=== PATIENT | male | born 1995 | race Caucasian/White ===

== ENCOUNTER 2021-07-17 17:35 | Emergency (ER) | payer OTHER ==
[~2021-07-17] VITALS: Ht 170.2 cm; Wt 90.7 kg
--- NOTE | 2021-07-17 17:50 | NUR ---
BIBS THIS 25YO MALE PATIENT, PER WHEELCHAIR. WITH CC OF "Abdominal Pain/nause/vomiting x3H- I think we have food poisoning" PATIENT VOMITED 5X CLAIMED. VITALS CHECKED. PLACED COMFORTABLY IN BED
--- NOTE | 2021-07-17 17:55 | NUR ---
URINE SPECIMEN SENT TO LAB
[2021-07-17] MEDS ORDERED: DICYCLOMINE HCL INJ 20 MG/2 ML AMPUL IM ONE ×3 (18:00→18:17)
[2021-07-17] MEDS ORDERED: ONDANSETRON HCL/PF 4 MG/2 ML VIAL IV ONE (18:00)
[2021-07-17] MEDS ORDERED: IV NS 0.9% 1,000 ML IV ONE (18:00)
[2021-07-17] MEDS ORDERED: ONDANSETRON HCL/PF 4 MG/2 ML VIAL ONE ×2 (18:16→18:17)
--- NOTE | 2021-07-17 18:18 | NUR ---
IV CANNULA INSERTED ON LEFT AC USING G20. LINE IS PATENT, FLUSHED WITH NS
[2021-07-17] MEDS ORDERED: ONDA4TAB5 PO (19:20)
--- NOTE | 2021-07-17 19:55 | NUR ---
IV CANNULA REMOVED
--- NOTE | 2021-07-17 20:00 | NUR ---
Patient discharged to home in stable condition. Written and verbal after care instructions given. Patient verbalizes understanding of instruction.
[2021-07-17 20:37] VITALS: BP 113/71
== END 2021-07-17 20:38 | disposition home or self-care (01) ==
LOC: ER 17:42
DX: R10.84 Generalized abdominal pain (principal); R11.2 Nausea with vomiting, unspecified; R19.7 Diarrhea, unspecified
CPT/HCPCS: 96361; 96372; 96374; 99284; J0500 ×2; J2405 ×2; J7030